=== PATIENT | male | born 1955 | race Caucasian/White ===

== ENCOUNTER 2023-08-10 14:47 | Inpatient (IN) | payer MEDICARE, OTHER ==
[~2023-08-10] VITALS: Ht 182.9 cm; Wt 83.9 kg
[2023-08-10] MEDS ORDERED: SIMV-49 PO (18:05)
[2023-08-10] MEDS ORDERED: PANT40TA49 PO (18:05)
[2023-08-10] MEDS ORDERED: ASPI-495 PO (18:05)
[2023-08-10] MEDS ORDERED: AMLO-212 PO (18:05)
[2023-08-10] MEDS ORDERED: ENOX40DI9 SQ (18:05)
[2023-08-10 18:30] VITALS: BP 154/84; TEMP 98.8; O2SAT 98
[2023-08-10 19:45] VITALS: BP 139/75; TEMP 98.1; O2SAT 97
[2023-08-10] MEDS: SIMVASTATIN 40 MG TABLET PO SCH (20:55)
[2023-08-10] MEDS: NICOTINE 21 MG/24HR PATCH TD SCH (21:01)
[2023-08-11 01:13] LABS: *BILIRUBIN,URIN NEGATIVE (NEGATIVE); *CLARITY,URINE CLEAR (CLEAR); *COLOR,URINE YELLOW (YELLOW); *KETONES,URINE NEGATIVE (NEGATIVE); *PROTEIN,URINE NEGATIVE (NEGATIVE); LEUKOCYTE ESTERASE ,URINE TRACE (NEGATIVE); NITRITE, URINE NEGATIVE (NEGATIVE); UGLUCOSE NEGATIVE (NEGATIVE)
[2023-08-11 01:14] LABS: *BLOOD, URINE TRACE INTACT (NEGATIVE)
[2023-08-11 02:12] LABS: BACTERIA,URINE FEW /HPF (NONE SEEN); SQUAMOUS EPITHELIAL CELL,UR FEW /HPF (NONE SEEN)
[2023-08-11] MEDS: PANTOPRAZOLE SODIUM 40 MG TABLET.DR PO SCH (06:45)
[2023-08-11 06:51] VITALS: BP 164/87; TEMP 98.4; O2SAT 97
[2023-08-11 07:05] VITALS: BP 159/81; O2SAT 21
[2023-08-11 07:07] LABS: BASOPHILS % (AUTO) 0.5 % (0.0-2.0); EOSINOPHILS # (AUTO) 0.2 K/uL (0.0-0.7); EOSINOPHILS % (AUTO) 2.3 % (0.0-7.0); HEMOGLOBIN 12.5 g/dL (12.5-16.3); LYMPHOCYTES # (AUTO) 2.2 K/uL (0.8-4.8); LYMPHOCYTES % (AUTO) 31.4 % (20.5-51.5); MEAN CORPUSCULAR HEMOGLOBIN 29.6 uug (23.8-33.4); MEAN CORPUSCULAR HGB CONC 34 g/dL (32.5-36.3); MEAN CORPUSCULAR VOLUME 87.3 fL (73.0-96.2); MONOCYTES # (AUTO) 0.5 K/uL (0.1-1.30); NEUTROPHILS # (AUTO) 4.1 K/uL (1.8-8.9); NEUTROPHILS % (AUTO) 58.8 % (38.5-71.5); PLATELET COUNT (AUTO) 149 K/uL (152-348); RED BLOOD CELL COUNT(AUTO) 4.24 MIL/uL (4.06-5.63); RED CELL DISTRIBUTION WIDTH 14.7 % (12.1-16.2)
[2023-08-11 07:27] LABS: DIFFERENTIAL COMMENT 1
[2023-08-11 07:31] LABS: CALCIUM 8.9 mg/dL (8.5-10.1); PHOSPHOROUS 3.8 mg/dL (2.5-4.9); POTASSIUM 3.5 mmol/L (3.5-5.1)
[2023-08-11] MEDS: ASPIRIN EC 81 MG TABLET.DR PO SCH (09:00)
[2023-08-11] MEDS: AMLODIPINE 5 MG TABLET PO SCH (09:00)
[2023-08-11 11:59] LABS: THYROID STIMULATING HORMONE 5.055 mIU/mL (0.358-3.740)
[2023-08-11 16:41] VITALS: BP 152/81; TEMP 99.4; O2SAT 97
[2023-08-11 22:22] VITALS: BP 137/82; TEMP 99.1; O2SAT 97
[2023-08-12 10:35] VITALS: BP 168/88; TEMP 99.4; O2SAT 96
[2023-08-12 15:39] VITALS: BP 145/81; TEMP 98.2; O2SAT 97
[2023-08-12 20:00] VITALS: BP 145/79; TEMP 97.9; O2SAT 99
[2023-08-13 15:36] VITALS: BP 138/85; TEMP 98.4; O2SAT 96
[2023-08-13] MEDS ORDERED: ACETAMINOPHEN 325 MG TABLET PO PRN (19:45)
[2023-08-13] MEDS: DOCUSATE SODIUM 100 MG CAPSULE PO SCH (20:50)
[2023-08-14] MEDS: MULTIVITAMINS,THERAPEUTIC TABLET PO SCH (08:59)
[2023-08-14 09:14] VITALS: BP 148/69; TEMP 98.3
[2023-08-14 20:02] VITALS: BP 133/79; TEMP 98.5
[2023-08-15 06:32] VITALS: BP 165/99; TEMP 98.4; O2SAT 96
[2023-08-15 15:51] VITALS: BP 150/76; TEMP 98; O2SAT 97
[2023-08-15 20:27] VITALS: BP 141/74; TEMP 98; O2SAT 97
[2023-08-16 08:03] VITALS: BP 131/67; TEMP 97.6
[2023-08-16 11:45] VITALS: BP 166/92; TEMP 98.8; O2SAT 97
[2023-08-16 16:48] VITALS: BP 153/80; TEMP 98.9; O2SAT 97
[2023-08-16 20:00] VITALS: BP 147/78; TEMP 98.2; O2SAT 98
[2023-08-17 15:34] VITALS: BP 139/74; TEMP 98.1; O2SAT 98
[2023-08-17 20:49] VITALS: BP 151/73; TEMP 98.8; O2SAT 98
[2023-08-18 16:00] VITALS: BP 130/85; TEMP 97.6; O2SAT 97
[2023-08-18 20:00] VITALS: BP 155/77; TEMP 97.5; O2SAT 97
[2023-08-19] MEDS: ENSURE WITH FIBER 237 ML LIQUID (CHOCOLATE) PO SCH (14:45)
[2023-08-19 20:38] VITALS: BP 137/75; TEMP 98.2; O2SAT 99
[2023-08-20 16:00] VITALS: BP 144/74; TEMP 98.1; O2SAT 99
[2023-08-20 20:00] VITALS: BP 138/75; TEMP 98.3; O2SAT 96
[2023-08-21 15:07] VITALS: BP 128/63; TEMP 98.3; O2SAT 100
[2023-08-21 20:23] VITALS: BP 137/75; TEMP 98.9; O2SAT 97
== END 2023-08-22 17:15 | disposition home health service (06) | DRG 57 ==
PROVIDERS: ADMIT Physical Medicine & Rehabilitation; ATTEND Physical Medicine & Rehabilitation
DX: I69.398 Other sequelae of cerebral infarction (principal); I50.42 Chronic combined systolic (congestive) and diastolic (congestive) heart failure; I69.393 Ataxia following cerebral infarction; I69.319 Unspecified symptoms and signs involving cognitive functions following cerebral infarction; R26.81 Unsteadiness on feet; E78.5 Hyperlipidemia, unspecified; F17.210 Nicotine dependence, cigarettes, uncomplicated; H81.10 Benign paroxysmal vertigo, unspecified ear; I25.10 Atherosclerotic heart disease of native coronary artery without angina pectoris; Z91.148 Patient's other noncompliance with medication regimen for other reason; Z95.5 Presence of coronary angioplasty implant and graft; R79.89 Other specified abnormal findings of blood chemistry; E03.9 Hypothyroidism, unspecified; I11.0 Hypertensive heart disease with heart failure; I67.2 Cerebral atherosclerosis; J44.9 Chronic obstructive pulmonary disease, unspecified
CPT/HCPCS: 36415; 83735; 84100; 84443; 84484; 85025; 97535-GO-CO; A4663